=== PATIENT | female | born 1990 | race Caucasian/White ===

== ENCOUNTER 2017-08-02 16:43 | Emergency (ER) | payer MEDICAID ==
--- NOTE | 2017-08-02 16:56 | EDPHY ---
H & P Stated Complaint: dizziness x 3 days Time Seen by Provider: 08/02/17 16:56 HPI/ROS: HPI: This is a 27-year-old female who presents with Chief Complaint:dizziness x 3 days Location: Head Quality: Dizziness Duration: 3 weeks Signs and Symptoms: + headache, + nausea, + balance difficulties with ambulation in changing positions, no fever, no headache, no neck pain, + palpitations, no chest pain, no shortness of breath Timing: daily Severity: moderate to severe Context: Patient presents with complaints of dizziness described as the room spinning accompanied by nausea, visual blurriness and balance deficits with ambulation and changing positions from sitting to standing. The dizziness occurs daily, intermittent episodes, worsened with changing positions from sitting to standing and moving her head side to side. She has a history of sinus disease and had sinus surgery several years ago. She is not taking any antihistamines or nasal steroid sprays at this time. She recently moved to the area from [place]. She reports that approximately 2 weeks ago she was seen in a free-standing emergency room; wear head CT scan was performed and unremarkable per patient along with labs that were benign. She was given Antivert and took approximately 2 hours ago without relief. She is out of her Antivert at this point. She denies any nasal congestion/sneezing/sinus pressure /visual floaters/aura. LMP was 1-2 weeks ago. She drinks plenty of water throughout the day and denies any urinary symptoms. She denies any actual vomiting or abdominal pain. 3 days ago patient went hiking which worsened her symptoms of the room spinning and dizziness. Patient finally followed up with her primary care provider for the free-standing emergency room recommendation today after 3 weeks who referred her to the emergency room for further evaluation. Modifying Factors: Antivert no relief Comment: ROS: see HPI Constitutional: No fever, no chills, no weight loss Eyes: No blurred vision Respiratory: No shortness of breath, no cough Cardiovascular: No chest pain Gastrointestinal: + nausea, no vomiting, no diarrhea Genitourinary: No dysuria Extremities: No myalgias Neurologic: No weakness, no numbness Skin: No rashes Hematologic: No bruising, no bleeding MEDICAL/SURGICAL/SOCIAL HISTORY: Medical history: Sinus disease. Does not take any regular medications. Surgical history: Sinus surgery Social history: Strong family and friends support. CONSTITUTIONAL: Well-developed well-nourished young adult white female, awake and alert, no obvious distress HEENT: Atraumatic and normocephalic, PERRL, EOMI. Tympanic membranes clear. Oropharynx clear, no exudate and moist pink mucosa. Airway patent. No lymphadenopathy. No carotid bruits appreciated. No meningismus. Cardiovascular: Normal S1/S2, regular rate, regular rhythm, without murmur rub or gallop. PULMONARY/CHEST: Symmetrical and nontender. Clear to auscultation bilaterally. Good air movement. No accessory muscle usage. ABDOMEN: Soft, nondistended, nontender, no rebound, no guarding, no peritoneal signs, no masses or organomegaly. No CVAT. EXTREMITIES: 2/2 pulses, no deformities, no clubbing, no cyanosis or edema. NEUROLOGICAL: no focal neuro deficits. GCS 15. Nystagmus noticed with Talya- Hallpike maneuver with reproduction of dizziness. Normal cerebellar exam. Cranial nerves 2-12 grossly intact. Normal [id number] test. Normal heel-to -nielsen test. Dizziness with bilateral Romberg test. SKIN: Warm and dry, no erythema. no rash. Good capillary refill. Source: Patient Exam Limitations: No limitations - Personal History LMP (Females 10-55): 8-14 Days Ago Current Tetanus Diphtheria and Acellular Pertussis (TDAP): Yes - Medical/Surgical History Hx Asthma: No Hx Chronic Respiratory Disease: No Hx Diabetes: No Hx Cardiac Disease: No Hx Renal Disease: No Hx Cirrhosis: No Hx Alcoholism: No Hx HIV/AIDS: No Hx Splenectomy or Spleen Trauma: No Other PMH: none - Social History Smoking Status: Never smoked Constitutional: Initial Vital Signs Temperature (C) 36.3 C 08/02/17 16:47 Heart Rate 81 08/02/17 16:47 Respiratory Rate 16 08/02/17 16:47 Blood Pressure 117/59 L 08/02/17 16:47 O2 Sat (%) 100 08/02/17 16:47 O2 Delivery Mode Room Air Allergies/Adverse Reactions: No Known Allergies Allergy (Unverified 08/02/17 16:46) Home Medications: Medication Instructions Recorded Meclizine HCl [Antivert] 25 mg PO Q6 PRN #12 tablet 08/02/17 Scopolamine Hydrobromide 1 patch TD Q72H PRN #12 patch 08/02/17 [Scopolamine Patch] Medical Decision Making - Diagnostics Imaging Results: Imaging Impressions Brain MRI 08/02/17 17:07 Impression: Normal unenhanced MR imaging of the brain. Findings were discussed with Lynsey Villasenor PA-C at 18:44, on 08/02/2017. Procedures: 12 lead EKG: Indication: Dizziness, palpitations Rhythm: Normal sinus rhythm, rate of 58 beats per minute [place]: Normal Intervals: Normal QRS: Normal ST segments: Nonspecific changes V2/V1 likely early repolarization INTERPRETATION: No acute ischemic changes The 12 lead EKG was interpreted by myself and with attending. ED Course/Re-evaluation: Labs, urinalysis, IV fluids, orthostatics, IV medications, MRI brain, EKG ordered Given 1 L normal saline, IV Reglan and IV Ativan 1 mg 1755: Nurse notified me that patient now reports she really CV IV Ativan at her emergency room visit approximately 2-3 weeks ago that made her feel worse and even increased her dizziness. IV Ativan discontinued and scopolamine patch ordered instead. IV Reglan given. 1830: Labs reviewed and unremarkable Orthostatics normal Called by radiologist who advised MRI shows no acute intracranial process, does show some maxillary sinus retention cyst. Patient's dizziness significantly improved with hydration and medications. Differential Diagnosis: Dizziness including but not limited to peripheral and central causes of vertigo , orthostatic causes including dehydration, and blood loss. - Data Points Laboratory Results: Laboratory Results 08/02/17 17:25 08/02/17 17:25 08/02/17 08/02/17 08/02/17 17:25 17:25 17:25 WBC 6.43 10^3/uL 10^3/uL (3.80-9.50) RBC 4.33 10^6/uL 10^6/uL (4.18-5.33) Hgb 15.0 g/dL g/dL (12.6-16.3) Hct 42.1 % % (38.0-47.0) MCV 97.2 fL fL (81.5-99.8) MCH 34.6 pg H pg (27.9-34.1) MCHC 35.6 g/dL g/dL (32.4-36.7) RDW 11.1 % L % (11.5-15.2) Plt Count 197 10^3/uL 10^3/uL (150-400) MPV 10.1 fL fL (8.7-11.7) Neut % (Auto) 65.9 % % (39.3-74.2) Lymph % (Auto) 26.7 % % (15.0-45.0) [place] % (Auto) 6.4 % % (4.5-13.0) Eos % (Auto) 0.3 % L % (0.6-7.6) Baso % (Auto) 0.5 % % (0.3-1.7) Nucleat RBC Rel Count 0.0 % % (0.0-0.2) Absolute Neuts (auto) 4.24 10^3/uL 10^3/uL (1.70-6.50) Absolute Lymphs (auto) 1.72 10^3/uL 10^3/uL (1.00-3.00) Absolute Monos (auto) 0.41 10^3/uL 10^3/uL (0.30-0.80) Absolute Eos (auto) 0.02 10^3/uL L 10^3/uL (0.03-0.40) Absolute Basos (auto) 0.03 10^3/uL 10^3/uL (0.02-0.10) Absolute Nucleated RBC 0.00 10^3/uL 10^3/uL (0-0.01) Immature Gran % 0.2 % % (0.0-1.1) Immature Gran # 0.01 10^3/uL 10^3/uL (0.00-0.10) Sodium 135 mEq/L mEq/L (134-144) Potassium 3.8 mEq/L mEq/L (3.5-5.2) Chloride 95 mEq/L L mEq/L (97-110) Carbon Dioxide 26 mEq/l mEq/l (22-31) Anion Gap 14 mEq/L mEq/L (8-16) BUN 10 mg/dL mg/dL (7-23) Creatinine 0.9 mg/dL mg/dL (0.6-1.0) Estimated GFR > 60 Glucose 98 mg/dL mg/dL (70-100) Calcium 9.9 mg/dL mg/dL (8.5-10.4) TSH 2.240 uIU/mL uIU/mL (0.465-4.680) Beta HCG, Qual NEGATIVE Medications Given: Discontinued Medications Sodium Chloride (Ns) 1,000 mls @ 0 mls/hr IV ONCE ONE; Wide Open PRN Reason: Protocol Stop: 08/02/17 17:07 Last Admin: 08/02/17 17:45 Dose: 1,000 mls Lorazepam (Ativan Injection) 1 mg IVP EDNOW ONE Stop: 08/02/17 17:07 Last Admin: 08/02/17 17:58 Dose: Not Given Metoclopramide HCl (Reglan Injection) 10 mg IVP EDNOW ONE Stop: 08/02/17 17:17 Last Admin: 08/02/17 17:47 Dose: 10 mg Scopolamine HBr (Scopolamine Patch) 1 patch TD ONCE ONE Stop: 08/02/17 17:57 Last Admin: 08/02/17 19:01 Dose: 1 patch Departure - Departure Disposition: Home, Routine, Self-Care Clinical Impression: Benign paroxysmal positional vertigo Qualifiers: Laterality: unspecified laterality Qualified Code(s): H81.10 - Benign paroxysmal vertigo, unspecified ear Condition: Good Instructions: Benign Paroxysmal Positional Vertigo (ED) Additional Instructions: Please stay hydrated. Wear scopolamine patch for the next 72 hours and use Antivert as needed. Follow-up with ear nose and throat in the next 5-7 days. Referrals: [facility] [Other] - As per Instructions Donn Beach MD [Medical Doctor] - As per Instructions Prescriptions: Meclizine HCl [Antivert] 25 mg PO Q6 PRN #12 tablet PRN Reason: Dizziness Scopolamine Hydrobromide [Scopolamine Patch] 1 patch TD Q72H PRN #12 patch PRN Reason: Dizziness
[2017-08-02] MEDS ORDERED: NS 1,000 ML IV ONE (17:06)
[2017-08-02] MEDS ORDERED: METOCLOPRAMIDE 10 MG/2 ML VIAL IVP ONE (17:16)
--- NOTE | 2017-08-02 17:33 | CPEKG ---
Heart Rate: 58 RR Interval: 1034 P-R Interval: 184 QRSD Interval: 96 QT Interval: 428 QTC Interval: 421 P [place]: 41 QRS [place]: 89 T Wave [place]: 64 EKG Severity - ABNORMAL ECG - EKG Impression: SINUS RHYTHM EKG Impression: LEFT ATRIAL ABNORMALITY EKG Impression: BORDERLINE T ABNORMALITIES, ANT-LAT LEADS EKG Impression: ST ELEV, PROBABLE NORMAL EARLY REPOL PATTERN Electronically Signed By: Liu Mercado 02-Aug-2017 18:02:21
[2017-08-02 17:37] LABS: % IMMATURE GRANULYOCYTES 0.2 % (0.0-1.1); ABSOLUTE IMMATURE GRANULOCYTES 0.01 10^3/uL (0.00-0.10); ADD DIFF? NO; ADD MORPH? NO; ADD SCAN? NO; ATYPICAL LYMPHOCYTE FLAG 20 (0-99); FRAGMENT RBC FLAG 0 (0-99); HEMATOCRIT 42.1 % (38.0-47.0); LEFT SHIFT FLG 0 (0-99); LIPEMIA HEMOLYSIS FLAG 90 (0-99); MEAN CELL HEMOGLOBIN 34.6 pg (27.9-34.1); MEAN CELL HEMOGLOBIN CONCENTR. 35.6 g/dL (32.4-36.7); MEAN CELL VOLUME 97.2 fL (81.5-99.8); MEAN PLATELET VOLUME 10.1 fL (8.7-11.7); PLATELET CLUMPS FLAG 20 (0-99); PLATELET COUNT 197 10^3/uL (150-400); RED BLOOD CELL COUNT 4.33 10^6/uL (4.18-5.33); RED CELL DISTRIBUTION WIDTH 11.1 % (11.5-15.2)
[2017-08-02] MEDS: LORazepam 2 MG/ML INJ IVP ONE ×2 (17:47→17:58)
[2017-08-02 17:53] LABS: ANION GAP 14 mEq/L (8-16); CALCIUM 9.9 mg/dL (8.5-10.4); CARBON DIOXIDE 26 mEq/l (22-31); CHLORIDE 95 mEq/L (97-110); CREATININE 0.9 mg/dL (0.6-1.0); GLOMERULAR FILTRATION RATE > 60; GLUCOSE 98 mg/dL (70-100); POTASSIUM 3.8 mEq/L (3.5-5.2); SODIUM 135 mEq/L (134-144)
[2017-08-02] MEDS ORDERED: SCOPOLAMINE HYDROBROMIDE 1 MG/3 DAYS PATCH TD ONE (17:56)
[2017-08-02 19:21] VITALS: BP 108/61; PULSE 60; RESP 18; TEMP 98.2; O2SAT 97
== END 2017-08-02 19:43 | disposition home or self-care (01) ==
PROC: 3E0337Z Introduction of Electrolytic and Water Balance Substance into Peripheral Vein, Percutaneous Approach (ICD-10-PCS; principal; 2017-08-02)
DX: H81.10 Benign paroxysmal vertigo, unspecified ear (principal); E86.9 Volume depletion, unspecified
CPT/HCPCS: 96374; J2060; J2765

== ENCOUNTER → 2017-11-19 | Outpatient (CLI) | payer MEDICAID | LOC: BMCIMAGING 13:17 | PROVIDERS: ATTEND Family Medicine | DX: Z13.828 Encounter for screening for other musculoskeletal disorder (principal) ==

== ENCOUNTER → 2018-07-02 | Outpatient (CLI) | payer MEDICAID | LOC: FIMAGING 12:13 | PROVIDERS: ATTEND Physician Assistant | DX: S83.242A Other tear of medial meniscus, current injury, left knee, initial encounter (principal); M71.22 Synovial cyst of popliteal space [Baker], left knee ==

== ENCOUNTER → 2019-01-08 | Outpatient (CLI) | payer MEDICAID | LOC: FIMAGING 13:07 | PROVIDERS: ATTEND Midwife | DX: N94.10 Unspecified dyspareunia (principal) ==